=== PATIENT | male | born 1970 | race African-American/Black ===

== ENCOUNTER → 2016-05-31 | Outpatient (CLI) | payer OTHER ==
--- NOTE | 2016-05-31 13:12 | DI ---
EXAM: TIB-FIB LEFT 2 VIEW COMPARISON: None available. HISTORY: [email or web address]: DIAGNOSTIC TESTING . FINDINGS: There is no evidence for acute fracture, subluxation, or dislocation. No osseous abnormality is identified. IMPRESSION: Unremarkable exam. LOCATION OF DICTATION: [facility] – [place] .
--- NOTE | 2016-05-31 13:15 | DI ---
EXAM: TIB-FIB RIGHT 2 VIEW COMPARISON: None available. HISTORY: ITS.REASON: DIAGNOSTIC TESTING . FINDINGS: There is no evidence for acute fracture, subluxation, or dislocation. No osseous abnormality is identified. The articulating surfaces are smooth. IMPRESSION: Unremarkable exam. [place] [facility] [place]
--- NOTE | 2016-05-31 13:17 | DI ---
EXAM: CHEST, PA LATERAL COMPARISON: None available. HISTORY: ITS.REASON: DIAGNOSTIC TESTING . FINDINGS: The heart is enlarged. The pulmonary vascularity appears unremarkable. The lungs are clear. There is no evidence for pleural effusion. There is no evidence for a pneumothorax. No osseous abnormalities are identified. IMPRESSION: Cardiomegaly. Otherwise unremarkable. LOCATION OF DICTATION: [facility] .
--- NOTE | 2016-05-31 13:18 | DI ---
EXAM: LUMBAR SPINE 2-3 VIEWS COMPARISON: None available. HISTORY: ITS.REASON: DIAGNOSTIC TESTING . FINDINGS: Lumbar visualized well aligned. Vertebral body heights are well-maintained. Disc space heights appear well-preserved. The sacral arches are intact. The pedicles and spinous processes are intact and are well aligned. IMPRESSION: Unremarkable exam. LOCATION OF DICTATION: [facility] [place]
--- NOTE | 2016-05-31 14:16 | DI ---
EXAM: KNEE LEFT 2 VIEW COMPARISON: None available. HISTORY: ITS.REASON: DIAGNOSTIC TESTING . FINDINGS: There is no evidence for acute fracture, subluxation, or dislocation. No osseous abnormality is identified. The medial and lateral compartments are intact. The patellofemoral joint is unremarkable. A significant joint effusion is not appreciated. IMPRESSION: Unremarkable exam. [place] [facility] [place]
--- NOTE | 2016-06-04 08:11 | ECHOF ---
DATE OF PROCEDURE May 31, 2016 Left atrial dimension is normal. Left ventricular end-diastolic dimension is normal. Left ventricular wall thickness is normal. LV systolic function is normal with ejection fraction of about 70%. Right atrium is normal. Right ventricle is normal. Aortic root dimension is normal. Mitral valve is morphologically normal with trace of mitral regurgitation. Aortic valve appears to be normal. Tricuspid valve shows trace of tricuspid regurgitation with normal estimated pulmonary artery systolic pressure of 28. Pulmonary valve shows trace of pulmonary insufficiency. There is no pericardial effusion. IMPRESSION 1. Normal LV systolic function with ejection fraction of 70%. 2. Trace of pulmonary insufficiency. 3. Trace of mitral regurgitation. 4. Trace of tricuspid regurgitation with normal estimated pulmonary artery systolic pressure of 28. MTDD
--- NOTE | 2016-06-04 16:15 | DI ---
EXAM: KNEE RIGHT 2 VIEW COMPARISON: None available. HISTORY: ITS.REASON: DIAGNOSTIC TESTING . FINDINGS: There is no evidence for acute fracture, subluxation, or dislocation. No osseous abnormality is identified. The medial and lateral compartments are intact. Patellofemoral joint appears unremarkable. There articulating surfaces are smooth. A significant joint effusion is not identified. IMPRESSION: Unremarkable exam. LOCATION OF DICTATION: [facility] – [place] .
== END ==
LOC: IMA 12:20
DX: Z02.89 Encounter for other administrative examinations (principal)
CPT/HCPCS: 93306

== ENCOUNTER → 2016-06-27 | Outpatient (CLI) | payer OTHER ==
--- NOTE | 2016-06-27 11:41 | DI ---
Indication: [email or web address].REASON: DIAGNOSTIC TESTING PROCEDURE: SINUS COMPLETE: Encounter: Initial Comparison: None Findings: No acute air-fluid levels identified. The paranasal sinuses are radiographically clear as are the mastoid air cells. No acute displaced fracture seen. Impression: No radiographic evidence of acute sinusitis. .
== END ==
LOC: IMA 09:04
DX: Z02.89 Encounter for other administrative examinations (principal)